=== PATIENT | male | born 1995 | race Caucasian/White ===

== ENCOUNTER 2020-06-15 19:54 | Emergency (ER) | payer OTHER ==
[2020-06-15] MEDS ORDERED: HYDROcodone 10MG/APAP 325MG 1 EA TAB PO ONE (20:16)
--- NOTE | 2020-06-15 20:18 | ED.PDOC ---
History of Present Illness - General Chief Complaint: Upper Extremity Injury Stated Complaint: L WRIST SWOLLEN & PAINFUL Time Seen by Provider: 06/15/20 20:14 Additional Information: Patient is a 24-year-old male who presents to the ED with chief complaint of left wrist pain status post fall. Patient has chronic 5/10 pain in his left wrist following a fall in August 2019 from a second story roof where he severely injured his wrist and had ORIF of his carpal bones. Patient had a mechanical trip and fall yesterday and landed on his left wrist and has exacerbated his chronic pain. He indicates his discomfort is now 8 out of 10. Patient has no other injuries or clinical concerns today. Patient takes only OTC Motrin at home for discomfort. - History of Present Illness Allergies/Adverse Reactions: Allergies Penicillins Allergy (Verified 06/15/20 20:27) Review of Systems - Review of Systems Constitutional: Denies: chills, fever Respiratory: Denies: cough, short of breath Cardiology: Denies: chest pain, palpitations All other Systems: Reviewed and Negative Family Medical History - Family History Mother Family History: Unknown Physical Exam - Physical Exam General Appearance: Alert, Comfortable, No apparent distress, Well Developed, Well Nourished Cardiovascular/Respiratory: no respiratory distress Elbow/Forearm Exam: limited ROM - Patient with well-healed dorsal scar to the left wrist. Patient has severely limited range of motion of wrist due to discomfort. There is no edema, abrasion or erythema. Patient with focal tenderness to palpation over the ulnar aspect of the wrist in the vicinity of the ulnar styloid. Negative e Hand Exam: non-tender Progress - Progress Progress: 06/15/20 20:20 Differential includes but is not limited to fracture, sprain, dislocation, contusion. 06/15/20 21:58 Patient reassessed. His imaging is nonacute and shows no evidence of nonunion at his previous surgical site. I have shown patient his x-rays. Patient tells me that he had surgery at [facility] but that he has missed multiple appointments because of the distance to [facility] and he is wondering how to get back into their system. I have given him instructions. Patient indicates he would like to continue taking OTC Tylenol or Motrin for pain and he will follow back up with his and doctors at [facility]. Vital signs stable, patient is NAD and looks clinically well and I believe is safe for discharge with outpatient follow-up. Follow-up instructions, discharge instructions and return to ED precautions discussed with patient. Patient voices understanding and willingness to comply with instructions. All radiographic results have been discussed with the patient, and all questions answered. Patient is happy with plan. Departure - Departure Clinical Impression: Sprain of wrist, left Qualifiers: Encounter type: initial encounter Qualified Code(s): S63.502A - Unspecified sprain of left wrist, initial encounter Time of Disposition: 21:59 Disposition: Discharge to Home or Self Care Condition: Good Departure Forms: ED Discharge - Pt. Copy, Patient Portal Self Enrollment Instructions: DI for Arm Pain, Wrist Sprain (DC) Comments: As discussed, call your [facility] doctors in the hand surgery clinic to make an appointment for reevaluation and treatment options for your chronic wrist pain.
[2020-06-15 20:19] VITALS: TEMP 98.5; O2SAT 99
[2020-06-15] MEDS ORDERED: ACETAMINOPHEN 500 MG TAB ONE (20:25)
[2020-06-15] MEDS ORDERED: ACETAMINOPHEN 500 MG TAB PO ONE (20:28)
--- NOTE | 2020-06-15 20:53 | RAD ---
EXAM DESCRIPTION: Hand,Left 3 Views (accession [id number]), Wrist,Left 3 Views (accession [id number]) CLINICAL HISTORY: fall, pain COMPARISON: None FINDINGS: Three x-ray views of the left hand and wrist were submitted. There is a screw at the level of the scaphoid bone. Deformity of the scaphoid bone could be secondary to the prior injury. Calcifications distal to the ulna could be related to prior injury. There is soft tissue swelling of the level of the wrist. There is no acute fracture or dislocation. Bone mineralization is within normal limits. There is no radiopaque foreign body material. IMPRESSION: Soft tissue swelling at the level of the wrist. No discrete acute fracture or dislocation. Evidence of prior surgery at the scaphoid bone. Electronically signed by: Jeremy Serrano MD 06/15/2020 8:51 PM [facility]
--- NOTE | 2020-06-15 20:53 | RAD ---
EXAM DESCRIPTION: Hand,Left 3 Views (accession [id number]), Wrist,Left 3 Views (accession [id number]) CLINICAL HISTORY: fall, pain COMPARISON: None FINDINGS: Three x-ray views of the left hand and wrist were submitted. There is a screw at the level of the scaphoid bone. Deformity of the scaphoid bone could be secondary to the prior injury. Calcifications distal to the ulna could be related to prior injury. There is soft tissue swelling of the level of the wrist. There is no acute fracture or dislocation. Bone mineralization is within normal limits. There is no radiopaque foreign body material. IMPRESSION: Soft tissue swelling at the level of the wrist. No discrete acute fracture or dislocation. Evidence of prior surgery at the scaphoid bone. Electronically signed by: Jeremy Serrano MD 06/15/2020 8:51 PM [facility]
[2020-06-15 22:04] VITALS: BP 128/68
== END 2020-06-15 22:04 | disposition home or self-care (01) ==
LOC: ER 19:54
DX: S63.502A Unspecified sprain of left wrist, initial encounter (principal); Z87.81 Personal history of (healed) traumatic fracture; Z98.890 Other specified postprocedural states; G89.29 Other chronic pain; W01.0XXA Fall on same level from slipping, tripping and stumbling without subsequent striking against object, initial encounter; Y92.9 Unspecified place or not applicable